=== PATIENT | female | born 1985 | race Caucasian/White ===

== ENCOUNTER 2023-09-03 20:16 | Emergency (ER) | payer MEDICAID, SELFPAY ==
[2023-09-03 20:18] VITALS: BP 140/78; PULSE 80; RESP 16; TEMP 36.3; O2SAT 96
[2023-09-03 21:09] LABS: Red Blood Cells-Urine 0 SEEN /hpf (0-5)
[2023-09-03 21:22] LABS: Color, Urine Yellow (Yellow); Glucose, Dipstick Normal (Normal); Ketone-Dipstick 5 mg/dl (Negative); Leukocyte Esterase-Dipstick 500 /ul (Negative); Nitrite-Dipstick Negative (Negative); Occult Blood-Urine 10 /ul (Negative); Protein-Dipstick 15 mg/dl (Negative); Specific Gravity, Urine 1.025 (1.002-1.030); Urine Bilirubin Dipstick Negative (Negative); Urine Clarity Sl. Cloudy (Clear); Urine Urobilinogen 1 mg/dl (Normal)
[2023-09-03 21:31] VITALS: BP 120/70; PULSE 95; RESP 16; O2SAT 100; BMI 37.0
[2023-09-03 21:35] LABS: Anion Gap 4 (5-15); BUN 10 mg/dL (7-18); BUN/Creat Ratio 17.6 RATIO (10-20); Bacteria 1+ /hpf (None Seen); Calcium,Total 8.9 mg/dL (8.5-10.1); Chloride 110 mmol/L (98-107); Creatinine, Serum 0.57 mg/dL (0.55-1.02); EST Glomerular Filtration Rate 126 mL/min (>60); Est Glom Filt Rate - Afr Amer 152 mL/min (>60); Glucose 86 mg/dL (74-106); Potassium 3.5 mmol/L (3.5-5.1); Sodium Level 138 mmol/L (136-145); Squamous Epithelial Cells - UA 0-5 SEEN /hpf (5-10); White Blood Cells 5-10 SEEN /hpf (0-5)
[2023-09-03 21:36] LABS: Mucous, Urine RARE /hpf (<or=2+)
[2023-09-03] MEDS: 0.9% Normal Saline (1000mL) 1,000 ML 1000 ML IV (22:16)
[2023-09-03] MEDS: Ceftriaxone 1 GM/50 ML BAG IV (22:19)
[2023-09-03] MEDS: Ondansetron 4 MG/2 ML Vial IV (22:19)
--- NOTE | 2023-09-03 22:25 | EX.ED.DYSGE1 ---
HPI History of Present Illness Chief Complaint: Nausea/Vomiting Detail of Chief Complaint: Nausea, vomiting and urinary symptoms Informant: patient Onset/Context/Timing Onset: Days Context: Sudden Onset Timing: Intermittent Quality: Nausea and vomiting Location: GI Current Severity: Moderate Maximum Severity: Moderate Worsened by: At night Relieved by: Nothing Associated Symptoms Associated Symptoms: Thirst, dry mouth, lightheadedness Narrative Narrative: Patient is a 38-year-old female who is seen by galley worker at [facility]. She does not know the name of the doctor. She denies fever, chills night sweats. She denies headache. Denies visual, ocular auditory symptoms. She denies cardiac or respiratory symptoms. She denies abdominal pain. She does report urgency and frequency. She denies hematuria. She may have slight discomfort with urination. She denies back or flank pain. She has had no ill contacts to her knowledge. She had no complications with hyperemesis with her first or second . She has no antibiotic allergies. She has no allergies to medications. Prior similar symptoms: Yes Recent Illness/Hospitalization: No PFSH PFSH Medical History Former smoker Migraines Home Medications cephalexin 500 mg capsule 500 mg PO Q6 #28 CAPSULES 09/03/23 [Rx Last Taken Unknown] ondansetron 4 mg disintegrating tablet 4 mg PO Q8H PRN PRN Nausea #10 tabs 09/03/23 [Rx Last Taken Unknown] Allergy/AdvReac Type Severity Reaction Status Date / Time No Known Allergies Allergy Verified 09/03/23 20:21 Surgical History History of Social History Smoking Status: Former smoker ROS ROS ED Constitutional Constitutional ED: Denies chills, fever(s), subjective or sweats Eyes Eyes: Denies blurry vision, change in vision or diplopia ENT ENT ED: Denies ear pain, rhinorrhea or sore throat Cardiovascular Cardiovascular: Denies chest pain or palpitations Respiratory/Chest Respiratory/Chest: Denies cough, dyspnea or dyspnea on exertion Gastrointestinal Gastrointestinal: Reports nausea and vomiting; Denies abdominal pain, diarrhea or melena Genitourinary Genitourinary ED: Reports urinary frequency and other Details: Also complains of urgency. ; Denies dysuria or hematuria Musculoskeletal Musculoskeletal: Denies arthralgias, back pain, myalgias or neck pain Integumentary Denies rash Neurologic Neurologic: Reports weakness; Denies headache(s) or paresthesias Psychiatric Psychiatric: Reports anxiety; Denies depression Endocrine Endocrinology: Denies cold intolerance or heat intolerance Hematologic/Lymphatic Hematologic/Lymphatic: Reports systems reviewed and no addt'l complaints, except as documented EXAM Physical Exam Const Vital Signs: 09/03/23 20:18 09/03/23 21:31 Temperature 97.4 F L Temperature Source Temporal Pulse Rate 80 95 Respiratory Rate 16 16 Blood Pressure 140/78 H 120/70 Blood Pressure Mean 98 86 Pulse Ox 96 100 Oxygen Delivery Method Room Air Room Air Positive well nourished and well developed General Appearance ED: well developed, NAD and pallor HEENT Reports dry mucous membranes HEENT Narrative: Head is atraumatic and normocephalic. Ears normal. Nares patent. Posterior pharynx is normal. Mouth ED: Yes dry mucous membranes Mouth: dry mucous membranes Eyes PERRL and EOMs intact bilaterally General Eye ED: Negative for pale conjunctiva or scleral icterus Neck no lymphadenopathy, supple and no JVD Chest Wall inspection of chest normal and palpation of chest normal Resp normal respiratory effort and clear to auscultation bilaterally Cardio regular rate, regular rhythm, S1 normal heart sound, S2 normal heart sound and no murmurs GI normal to inspection, nondistended, normoactive bowel sounds, non-distended and no masses; Negative for hepatosplenomegaly Palpation: soft and tender suprapubic Back/Spine no CVA tenderness Extremity normal to inspection General Extremety ED: Negative for edema or tenderness General Extremity: Negative for edema Neuro oriented x3, CN's II-XII intact bilaterally and no sensory deficits noted Sensorium / Orientation: alert Psych mental status grossly normal Skin no rashes or lesions noted, no wounds and skin turgor normal General Skin Exam: pallor; Negative for jaundice MDM MDM MDM Narrative Medical decision making narrative: Clinically patient appears dehydrated. Will hydrate with 1 L normal saline. She was treated with Zofran for nausea and vomiting. Because of her urinary symptoms were obtain UA to assess for infection as well as space gravity and ketones. Basic metabolic panel to assess electrolytes and renal function. Lab Data Attestation: I reviewed the patient's lab results. Lab results narrative: Patient metabolic panel is normal. Urine is remarkable spec gravity 1.025, positive ketones. Macro is positive for protein, occult blood and leukoesterase. Nitrites were negative. Micro reveals 10 WBCs with 1+ bacteria. Urine culture was sent and patient received a dose of Rocephin in the emergency department. Labs: Laboratory Results - last 24 hr 09/03/23 20:58 Sodium 138 Potassium 3.5 Chloride 110 H Carbon Dioxide 24.0 Anion Gap 4 L BUN 10 Creatinine 0.57 Est GFR (MDRD) Af Amer 152 Est GFR (MDRD) Non-Af 126 BUN/Creatinine Ratio 17.6 Glucose 86 Calcium 8.9 Urine Color Yellow Urine Clarity Sl. Cloudy Urine pH 5.0 Ur Specific [place] 1.025 Urine Protein 15 H Urine Glucose (UA) Normal Urine Ketones 5 H Urine Occult Blood 10 H Urine Nitrite Negative Urine Bilirubin Negative Urine Urobilinogen 1 H Ur Leukocyte Esterase 500 H Urine RBC 0 SEEN Urine WBC 5-10 SEEN Ur Squamous Epith Cells 0-5 SEEN Urine Bacteria 1+ Urine Mucus RARE Treatment and Re-Evaluation :: Patient's nausea and vomiting has resolved with Zofran. Plan is to discharge with prescription for Zofran and cephalexin. She was instructed follow-up with her galley worker in the next 2 to 3 days. Discharge Plan Triage Chief Complaint: Nausea/Vomiting ED Provider: Chaka Pérez Dx/Rx/DC Orders Clinical Impression: Acute dehydration, Ketosis, Urinary tract infection affecting , Nausea & vomiting Instructions: Urinary Tract Infections in Women, ED Vomiting (Adult) Prescriptions: New cephalexin [cephalexin] 500 mg capsule 500 mg PO Q6 Qty: 28 0RF ondansetron [ondansetron] 4 mg tablet,disintegrating 4 mg PO Q8H PRN PRN (Reason: Nausea) Qty: 10 0RF Primary Care Provider: Care Physician,No Primary Referrals: Care Physician,No Primary [Primary Care Provider] - Activity Restrictions/Additional Instructions: Contact your galley worker to be seen in the next 2 to 3 days. Disposition Disposition: Home, Self Care
[2023-09-03 23:00] VITALS: BP 121/72; PULSE 87; RESP 16; O2SAT 99
[2023-09-03 23:40] VITALS: BP 118/70; PULSE 80; RESP 16; TEMP 37.1; O2SAT 99
== END 2023-09-03 23:47 | disposition home or self-care (01) ==
PROVIDERS: Emergency Provider Emergency Medicine; Visit Provider Emergency Medicine
DX: O23.40 Unspecified infection of urinary tract in pregnancy, unspecified trimester (principal); E88.89 Other specified metabolic disorders; O21.9 Vomiting of pregnancy, unspecified; Z87.891 Personal history of nicotine dependence; E86.0 Dehydration; O99.280 Endocrine, nutritional and metabolic diseases complicating pregnancy, unspecified trimester; Z3A.00 Weeks of gestation of pregnancy not specified
CPT/HCPCS: 80048; 81001; 87086; 87088; 96365; 96375; 99283; J7030; A4216; J2405

== ENCOUNTER 2024-10-03 19:41 | Emergency (ER) | payer MEDICAID, SELFPAY ==
[2024-10-03 19:42] VITALS: BP 131/90; PULSE 67; RESP 16; TEMP 36.5; O2SAT 100
--- NOTE | 2024-10-03 19:55 | EX.ED.DYSGE1 ---
HPI <OLEG Scherer - Last Filed: 10/03/24 21:01> History of Present Illness Chief Complaint: Headache Narrative Narrative: 39-year-old female past medical history migraines developed a bifrontal headache around noon and has been gradually worsening. She has nausea and light and sound sensitivity. No vomiting. No fever, chills, neck pain or systemic symptoms. It feels like her prior migraines. She states she has not had one in a long time but has been very stressed recently and thinks that this caused it to flareup. She normally takes Aleve but did not have any. She is not on any prescription medications. She denies history of trauma. PFSH <OLEG Scherer - Last Filed: 10/03/24 21:01> [facility] Medical History Former smoker Migraines Home Medications ?Medication ?Instructions ?Recorded ?Last Taken ?Type cephalexin 500 mg capsule 500 mg PO Q6 #28 CAPSULES 09/03/23 Unknown Rx ondansetron 4 mg disintegrating 4 mg PO Q8H PRN PRN Nausea #10 tabs 09/03/23 Unknown Rx tablet Allergy/AdvReac Type Severity Reaction Status Date / Time No Known Allergies Allergy Verified 10/03/24 19:42 Surgical History History of Social History Smoking Status: Former smoker ROS <OLEG Scherer - Last Filed: 10/03/24 21:01> ROS ED ROS Narrative Constitutional: Negative for fever, chills, malaise. Eyes: Negative for visual change. GI: Positive for nausea. No vomiting. Neuro: Positive for headache, negative motor/sensory dysfunction. EXAM <OLEG Scherer - Last Filed: 10/03/24 21:01> Physical Exam Narrative Exam Narrative: CONST: Patient sitting in no acute distress. EYES: Normal inspection. PERRL, EOMI, no nystagmus. ENT: Normal inspection, moist mucous membranes. NECK: Normal inspection. No meningismus. RESP: No respiratory distress, CTAB. CVS: Regular rate and rhythm, no murmur, no gallop. SKIN: Color normal, no rash, warm, dry, intact. EXTREMITIES: Normal appearance, no pedal edema. NEURO: Alert and answering questions appropriately. 5/5 upper and lower extremity strength, normal finger-nose bilaterally. PSYCH: Normal affect. Const Vital Signs: 10/03/24 19:42 Temperature 97.7 F L Temperature Source Oral Pulse Rate 67 Respiratory Rate 16 Blood Pressure 131/90 H Blood Pressure Mean 103 Pulse Ox 100 Oxygen Delivery Method Room Air <Dr. Quique Hanna DO - Last Filed: 10/03/24 21:10> Physical Exam Const Vital Signs: 10/03/24 19:42 Temperature 97.7 F L Temperature Source Oral Pulse Rate 67 Respiratory Rate 16 Blood Pressure 131/90 H Blood Pressure Mean 103 Pulse Ox 100 Oxygen Delivery Method Room Air [facility] <OLEG Scherer - Last Filed: 10/03/24 21:01> [facility] Narrative Medical decision making narrative: Differential includes but not limited to tension headache, migraine, less likely intracranial process 39-year-old female had a gradual onset bifrontal headache with nausea and light and sound sensitivity that feels similar to prior migraines. She appears well and nontoxic. Vital signs stable. Her exam is benign and she is neurologically intact. Since this headache was not sudden onset, feels similar to prior migraines, and she has a normal neurological exam I do not think head imaging is indicated. She was treated with IV fluids, Toradol, Compazine, and Benadryl with improvement and is requesting discharge. She was instructed to follow-up with her primary care doctor. <Dr. Quique Hanna DO - Last Filed: 10/03/24 21:10> [facility] Narrative Medical decision making narrative: Differential includes but not limited to tension headache, migraine, less likely intracranial process 39-year-old female had a gradual onset bifrontal headache with nausea and light and sound sensitivity that feels similar to prior migraines. She appears well and nontoxic. Vital signs stable. Her exam is benign and she is neurologically intact. Since this headache was not sudden onset, feels similar to prior migraines, and she has a normal neurological exam I do not think head imaging is indicated. She was treated with IV fluids, Toradol, Compazine, and Benadryl with improvement and is requesting discharge. She was instructed to follow-up with her primary care doctor. Supervisory Physician Note Patient was seen and examined with the Advanced Practice Provider. Nursing notes and vital signs have been reviewed. Pertinent old records have been reviewed. I agree with the essential elements of the KAREY's history, physical exam, assessment, and plan. The differential diagnosis and management options were discussed with the KAREY. I participated in determining and agree with the management, procedures, final impression and disposition as documented. See changes noted by me. Please see addendum or separate note for any additional details. 39-year-old female with history of migraines presents for evaluation of migraine. Associated symptom is headache, nausea, photophobia, phonophobia. Feels like her typical migraines. Denies any trauma. Gen: A&O x3, NAD Head: Normocephalic, atraumatic Eyes: No sclera icterus, conjunctiva clear, PERRL, EOMI ENT: TMs clear BL, moist mucous membranes, posterior oropharynx unremarkable, no sinus tenderness Neck: Trachea midline, No JVD, Full ROM, No meningismus CV: RRR, no murmurs, no peripheral edema Resp: Lungs CTA BL, no w/r/c Musc: Full ROM, no deformity, strength symmetrical and equal in all extremities Skin: Warm, dry, no rash Neuro: Alert, oriented, grossly intact, sensation intact Psych: Cooperative, appropriate mood and affect Patient denies acute onset of headache reaching maximal intensity in under one hour. This is neither the worst headache that they have ever experienced, nor was the onset timed with exertional activity or trauma. Patient has not experienced any fever, unusual neck pain or stiffness, syncope, or near syncope. They deny numbness, tingling, or weakness of the extremities. They also deny personal history of intracranial hemorrhage (including SAH), aneurysm, or AV malformation. given this information, I do not think any imaging of the head is needed. Patient's migraine was treated with migraine cocktail. On reevaluation, symptoms improved. Patient discharged home. Impression: 1. Migraine 2. History of migraines Discharge Plan Triage Chief Complaint: Headache ED Midlevel Provider: Mile Calabrese ED Provider: Quique Hanna Dx/Rx/DC Orders Clinical Impression: Migraine Instructions: ED, Migraine (Classical) Prescriptions: No Action cephalexin [cephalexin] 500 mg capsule 500 mg PO Q6 Qty: 28 0RF ondansetron [ondansetron] 4 mg tablet,disintegrating 4 mg PO Q8H PRN PRN (Reason: Nausea) Qty: 10 0RF Primary Care Provider: Care Physician,No Primary Referrals: Care Physician,No Primary [Primary Care Provider] - Kameron Patricia, [employer] [[facility]] - Activity Restrictions/Additional Instructions: Take Tylenol or ibuprofen as needed. Follow-up with your primary care doctor. If symptoms worsen come back to the ER. Print Language: American Disposition Disposition: Home, Self Care Discharge Date/Time: 10/03/24 21:05
[2024-10-03] MEDS: 0.9% Normal Saline (1000mL) 1,000 ML 999 ML IV (20:04)
[2024-10-03] MEDS: proCHLORPERazine 10 MG/2 ML Vial 5 MG IV (20:05)
[2024-10-03] MEDS: DiphenhydrAMINE 50 MG/ML Syringe 25 MG IV (20:06)
[2024-10-03] MEDS: Ketorolac 15 MG/ML Vial IV (20:07)
== END 2024-10-03 21:05 | disposition home or self-care (01) ==
PROVIDERS: Emergency Provider Surgery; Visit Provider Surgery
DX: G43.909 Migraine, unspecified, not intractable, without status migrainosus (principal); Z87.891 Personal history of nicotine dependence
CPT/HCPCS: 96361; 96374; 96375; 99285

== ENCOUNTER 2024-10-27 02:00 | Emergency (ER) | payer MEDICAID, SELFPAY ==
[2024-10-27 02:01] VITALS: BP 127/64; PULSE 87; RESP 16; TEMP 36.5; O2SAT 98; BMI 34.6
[2024-10-27 02:04] VITALS: BP 127/64; PULSE 89; RESP 16; TEMP 36.5; O2SAT 98
--- NOTE | 2024-10-27 02:33 | EX.ED.VIS.UR ---
HPI HPI - URI History of Present Illness Chief Complaint: Sore Throat Informant: patient Narrative Narrative: 2-day history of worsening sore throat pain with swallowing. No fevers. History of strep years ago. No diabetes history. Has not tried any medications. Denies any allergies. Still has her tonsils. Prior similar symptoms: Yes ROS ROS ED Constitutional Constitutional ED: Denies chills, fever(s) or sweats ENT ENT ED: Reports sore throat Cardiovascular Cardiovascular: Denies chest pain, leg edema, palpitations or racing heartbeat Respiratory/Chest Respiratory/Chest: Denies cough, dyspnea or dyspnea on exertion Gastrointestinal Gastrointestinal: Denies abdominal pain, diarrhea, nausea or vomiting Genitourinary Genitourinary ED: Denies dysuria, hematuria or urinary frequency Musculoskeletal Musculoskeletal: Denies back pain, extremity pain or neck pain Integumentary Denies rash or wounds Neurologic Neurologic: Denies headache(s), paresthesias or weakness PFSH PFSH Medical History Migraines Former smoker Home Medications ?Medication ?Instructions ?Recorded ?Last Taken ?Type NK 10/27/24 Unknown History Allergy/AdvReac Type Severity Reaction Status Date / Time No Known Allergies Allergy Verified 10/27/24 02:00 Surgical History History of Social History Smoking Status: Former smoker EXAM Physical Exam Const Vital Signs: 10/27/24 02:01 10/27/24 02:04 10/27/24 03:00 Temperature 97.7 F L 97.7 F L 98.0 F Temperature Source Oral Oral Oral Pulse Rate 87 89 89 Respiratory Rate 16 16 16 Blood Pressure 127/64 H 127/64 H 112/73 Blood Pressure Mean 85 85 86 Pulse Ox 98 98 99 Oxygen Delivery Method Room Air Room Air Room Air Positive well nourished and well developed General Appearance ED: well developed and NAD HEENT Reports moist mucous membranes HEENT Narrative: Minimal sized tonsils bilaterally there is minimal urothelium of tonsils no exudates. Uvula midline. No trismus. Airway patent. normocephalic and atraumatic Eyes General Eye ED: Yes normal appearance of both eyes Neck full ROM Chest Wall Chest: Negative for tenderness Resp normal respiratory effort and normal air movement Effort and Inspection: symmetric chest movement; Negative for respiratory distress Cardio regular rate, regular rhythm and no murmurs Peripheral Pulses: pulses 2+ throughout GI normal to inspection, nondistended, normoactive bowel sounds and non-tender Palpation: Negative for guarding or rebound tenderness present Extremity normal to inspection General Extremety ED: Negative for edema or tenderness General Extremity: Negative for edema Neuro oriented x3 and no sensory deficits noted Sensorium / Orientation: awake and alert Skin no rashes or lesions noted and no wounds MDM MDM MDM Narrative Medical decision making narrative: Interventions / MDM: Differential diagnosis: Sore throat, pharyngitis Diagnosis considered but do not suspect: No clinical peritonsillar abscess. My EKG interpretation: N/A Imaging independently reviewed and interpreted by myself: N/A External documents reviewed: N/A Test considered but not ordered:N/A ED course: Vital stable nontoxic minimal size tonsils with minimal erythema. Decadron ordered to help with symptoms rapid strep was obtained by myself and sent to the lab. 0348: Rapid strep negative. Reassured on findings. She will use Tyle or Motrin as needed. Should continue oral fluid hydration. Outpatient follow-up given. All questions were answered. Re-evaluation: stable Disposition discussed with patient/family/significant other: Patient Case discussed with consulting clinician: N/A This note was generated with [employer] dictation software. It may contain incorrect words, spelling, and punctuation that were not noted in checking the note before signing. Discharge Plan Triage Chief Complaint: Sore Throat ED Provider: Tripp Dorantes Dx/Rx/DC Orders Clinical Impression: Acute pharyngitis, Sore throat Instructions: ED Pharyngitis, Viral Prescriptions: No Action NK Primary Care Provider: Care Physician,No Primary Referrals: Care Physician,No Primary [Primary Care Provider] - Geno Muñoz DO O[facility] [[facility]] - 1-2 Weeks Activity Restrictions/Additional Instructions: Status post Decadron. Strep negative. Continue oral fluid hydration Tylenol Motrin as needed. Print Language: [place] Disposition Disposition: Home, Self Care
[2024-10-27 03:00] VITALS: BP 112/73; PULSE 89; RESP 16; TEMP 36.7; O2SAT 99
[2024-10-27] MEDS: dexAMETHasone 4 MG Tablet 8 MG PO (03:19)
[2024-10-27 03:54] VITALS: BP 117/63; PULSE 66; RESP 18; TEMP 36.7; O2SAT 97
== END 2024-10-27 03:57 | disposition home or self-care (01) ==
PROVIDERS: Emergency Provider Emergency Medicine; Visit Provider Emergency Medicine
DX: J02.9 Acute pharyngitis, unspecified (principal); Z87.891 Personal history of nicotine dependence
CPT/HCPCS: 87651; 99282